=== PATIENT | female | born 1930 | race Caucasian/White ===

== ENCOUNTER → 2017-02-13 | Outpatient (CLI) | payer OTHER ==
[~2017-02-13] MED LIST: AMLODIPINE BESYL5 MG PO; ASPIRIN PO; ATENOLOL PO; CLARITIN10 MG PO; FISH OIL 1,0001 CAP PO; FISH OIL 1,001000 M1 PO; HCTZ PO; HYDROCHLOROTH12.5 MG PO; LOW DOSE ASPIRI81 M1 PO; METOPROLOL TAR25 MG PO; MICRO-K PO; MULTI-VITAMIN1 TAB PO; POTASSIUM99 M1 PO; STOOL SOFTENER PO; STOOL SOFTENER1 EAC1 PO; VYTORIN 10/40 M1 TAB PO; VYTORIN 10/40 T1 TAB PO; ZOCOR PO
--- NOTE | ~2017-02-13 | MY11 ---
[facility] A Service of [facility] & [facility] RADIOLOGY TEXT RESULTS PATIENT: CATALINO HOOK LOCATION: [facility] : 34 UNIT #: [id number] AGE: [address]: Briseida Barnett MD SEX: F ORDER DR: [id number] [address] [address] [id number] O MR#: [id number] Acc #: [id number] NAME: CATALINO HOOK : 1930 SEX: F STUDY DATE/TIME: 02/13/2017 11:05 UNIT: [facility] ROOM: STUDY DESCRIPTION: MY Mammogram Screening Dig Jair Attending Physician: Briseida Barnett M.D. Referring Physician: Briseida Barnett M.D. Ordering Physician: Briseida Barnett M.D. Primary Care Physician: Briseida Barnett M.D. MEDICAL IMAGING REPORT This report is preliminary unless electronic signature is present. EXAM Digital screening mammogram 02/13/2017 HISTORY 86-year-old woman, no risk elevation. Prior left breast biopsy. The patient indicates pain left breast comes and goes. Annual screen. COMPARISON STUDIES Comparison mammograms date to 06/13/2005 with most recent 02/05/2016. FINDINGS Digital imaging of each breast was completed utilizing screening protocol. Review includes FDA-approved CAD device. Breast parenchyma is predominantly fatty replaced bilaterally. Two small nodules project in the upper outer quadrant of the left breast at the site of previous biopsy. There are a few stable microcalcifications in this area as well. I see no suspicious mass characteristics and no suspicious microcalcifications. There is no architectural deformity. IMPRESSION Stable benign mammogram. Annual screening recommended. BIRADS II Patients over the age of 40 are entered into a reminder system with target due date for the next mammogram. A result letter will also be sent to the patient. BIRADS: 2 - Benign finding Dictated by... Shiva Zavala M.D. THIS IS AN ELECTRONICALLY VERIFIED REPORT Shiva Zavala M.D. at 02/15/2017 8:06 AM [facility] A Service of [facility] & [facility] RADIOLOGY TEXT RESULTS PATIENT: CATALINO HOOK LOCATION: [facility] #: [id number] : 34 UNIT #: [id number] AGE: [address]: Briseida Barnett MD SEX: F ORDER DR: Meg TD: 02/13/2017 18:29 JOB #: [id number] MEDICAL IMAGING REPORT Page 1 of 1
== END | disposition home or self-care (01) ==
LOC: SMAM 10:54
DX: Z12.31 Encounter for screening mammogram for malignant neoplasm of breast (principal); Z98.890 Other specified postprocedural states
CPT/HCPCS: G0202